=== PATIENT | female | born 1965 | race Caucasian/White ===

== ENCOUNTER 2021-05-11 13:01 | Emergency (ER) | payer MEDICAID, OTHER ==
[~2021-05-11] VITALS: Ht 170.2 cm; Wt 118.2 kg
[~2021-05-11 13:01] MED LIST: ATOR20TA86 PO; BACL10TA PO; DOCU-350 PO; FAMO20 PO; GABA-1181 PO; MORP15TA43 PO; NYST15PO3 TP; POLY17PO47 PO; RIVA10 PO; SENN8.6T90 PO; SERT-158 PO; SITA50 PO
[2021-05-11] MEDS ORDERED: PERMETHRIN 5% 60 GM CREAM TP ONE (14:30)
[2021-05-11] MEDS ORDERED: DiphenhydrAMINE HCL 25 MG CAPSULE PO ONE (14:30)
[2021-05-11 15:40] VITALS: BP 113/75
== END 2021-05-11 16:22 | disposition home or self-care (01) ==
LOC: EMS 13:01
DX: L30.9 Dermatitis, unspecified (principal); E11.9 Type 2 diabetes mellitus without complications; Z20.7 Contact with and (suspected) exposure to pediculosis, acariasis and other infestations; Z88.8 Allergy status to other drugs, medicaments and biological substances; Z88.6 Allergy status to analgesic agent; Z88.1 Allergy status to other antibiotic agents; Z91.041 Radiographic dye allergy status
CPT/HCPCS: 99283

== ENCOUNTER 2021-07-13 12:06 | Emergency (ER) | payer MEDICAID, OTHER ==
[~2021-07-13] VITALS: Ht 170.2 cm; Wt 119.1 kg
[~2021-07-13 12:06] MED LIST changes: -RIVA10 PO; +RIVA10TA PO
[2021-07-13 12:40] VITALS: BP 117/56
== END 2021-07-13 13:55 | disposition home or self-care (01) ==
LOC: EMS 12:06
DX: L08.9 Local infection of the skin and subcutaneous tissue, unspecified (principal); E11.9 Type 2 diabetes mellitus without complications; F20.9 Schizophrenia, unspecified; Z88.8 Allergy status to other drugs, medicaments and biological substances; Z88.6 Allergy status to analgesic agent; Z88.1 Allergy status to other antibiotic agents; Z91.041 Radiographic dye allergy status
CPT/HCPCS: 82962; 99283

== ENCOUNTER 2021-10-22 10:08 | Day surgery (SDC) | payer OTHER ==
[~2021-10-22 10:08] MED LIST changes: -DOCU-350 PO; +DOCU250C99 PO
[2021-10-22] MEDS ORDERED: PROPOFOL 1% 20 ML VIAL IVP ONE (10:09)
[2021-10-22] MEDS ORDERED: LIDOCAINE/PF 2% 5 ML VIAL IM ONE (10:09)
[2021-10-22] MEDS ORDERED: SODIUM CHLORIDE 0.9% 1,000 ML IV ONE (10:30)
[2021-10-22 10:37] LABS: COVID AG,FIA SOURCE NASAL SWAB
[2021-10-22] MEDS ORDERED: OXYGEN THERAPY IH SCH (20:00)
== END 2021-10-22 13:55 | disposition home or self-care (01) ==
LOC: SURGERY 10:08
PROVIDERS: ATTEND Specialist
DX: R19.5 Other fecal abnormalities (principal); D12.8 Benign neoplasm of rectum; E11.22 Type 2 diabetes mellitus with diabetic chronic kidney disease; N18.30 Chronic kidney disease, stage 3 unspecified; E66.01 Morbid (severe) obesity due to excess calories; Z20.822 Contact with and (suspected) exposure to COVID-19; Z79.899 Other long term (current) drug therapy; Z98.890 Other specified postprocedural states; Z82.49 Family history of ischemic heart disease and other diseases of the circulatory system; Z83.3 Family history of diabetes mellitus
CPT/HCPCS: 45385; 87426; 88305; C1769; C9803; J2704; J3490; J7030

== ENCOUNTER 2021-10-25 12:03 | Emergency (ER) | payer OTHER ==
[~2021-10-25] VITALS: Ht 170.2 cm; Wt 119.1 kg
[~2021-10-25 12:03] MED LIST changes: +DOCU-350 PO; -DOCU250C99 PO
[2021-10-25] MEDS ORDERED: HYDROCODONE/ACETAMINOPHEN 5-325 MG TABLET PO ONE (13:45)
[2021-10-25 15:28] VITALS: BP 134/70
== END 2021-10-25 15:30 | disposition home or self-care (01) ==
LOC: EMS 12:26
DX: G89.29 Other chronic pain (principal); M25.512 Pain in left shoulder; E11.9 Type 2 diabetes mellitus without complications; F20.9 Schizophrenia, unspecified; Z88.1 Allergy status to other antibiotic agents; Z88.6 Allergy status to analgesic agent; Z88.8 Allergy status to other drugs, medicaments and biological substances; Z91.041 Radiographic dye allergy status; Z79.899 Other long term (current) drug therapy
CPT/HCPCS: 99283

== ENCOUNTER 2022-01-04 10:48 | Emergency (ER) | payer OTHER ==
[~2022-01-04] VITALS: Ht 170.2 cm; Wt 122.7 kg
[~2022-01-04 10:48] MED LIST changes: -DOCU-350 PO; +DOCU250C99 PO
[2022-01-04] MEDS ORDERED: CHOL500013 PO (11:07)
[2022-01-04] MEDS ORDERED: DICL100G51 TP (11:07)
[2022-01-04] MEDS ORDERED: DULA0.75 SQ (11:07)
[2022-01-04] MEDS ORDERED: PANT-31 PO (11:07)
[2022-01-04] MEDS ORDERED: ACETAMINOPHEN 500 MG TABLET PO ONE (12:30)
[2022-01-04] MEDS ORDERED: SERT-162 PO (12:33)
[2022-01-04] MEDS ORDERED: SITA100 PO (12:35)
[2022-01-04] MEDS ORDERED: HYDR-4584 PO (12:35)
[2022-01-04] MEDS ORDERED: LURA40TA2 PO (12:35)
[2022-01-04] MEDS ORDERED: GABA800T9 PO (12:35)
[2022-01-04] MEDS ORDERED: LEVO50TA11 PO (12:35)
[2022-01-04 13:23] VITALS: BP 108/51
== END 2022-01-04 13:42 | disposition home or self-care (01) ==
LOC: EMS 10:48
DX: S83.92XA Sprain of unspecified site of left knee, initial encounter (principal); E11.9 Type 2 diabetes mellitus without complications; F20.9 Schizophrenia, unspecified; Z88.5 Allergy status to narcotic agent; Z88.6 Allergy status to analgesic agent; Z91.041 Radiographic dye allergy status; Z88.8 Allergy status to other drugs, medicaments and biological substances; W05.0XXA Fall from non-moving wheelchair, initial encounter; Y93.89 Activity, other specified; Y92.89 Other specified places as the place of occurrence of the external cause; Y99.8 Other external cause status
CPT/HCPCS: 82962; 99284

== ENCOUNTER 2022-02-16 06:44 | Emergency (ER) | payer OTHER ==
[~2022-02-16] VITALS: Ht 170.2 cm; Wt 136.0 kg
[~2022-02-16 06:44] MED LIST changes: +CHOL500013 PO; +DICL100G51 TP; +DOCU-350 PO; -DOCU250C99 PO; +DULA0.75 SQ; -FAMO20 PO; -GABA-1181 PO; +GABA800T9 PO; +HYDR-4584 PO; +LEVO50TA11 PO; +LURA40TA2 PO; -MORP15TA43 PO; -NYST15PO3 TP; +PANT-31 PO; -POLY17PO47 PO; -SERT-158 PO; +SERT-162 PO; +SITA100 PO; -SITA50 PO
[2022-02-16] MEDS ORDERED: 0.9% SODIUM CHLORIDE 10 ML SYRINGE IVP PRN (07:00)
[2022-02-16 08:06] LABS: BASOPHILS % (AUTO) 0.4 % (0.0-2.0); EOSINOPHILS % (AUTO) 1.1 % (1.0-6.0); HEMATOCRIT 32.2 % (36-46); HEMOGLOBIN 10.6 g/dL (12.0-16.0); LYMPHOCYTES # (AUTO) 1.2 K/uL (1.0-4.8); LYMPHOCYTES % (AUTO) 23.6 % (22.0-44.0); MEAN CORPUSCULAR HEMOGLOBIN 26.8 pg (26.0-34.0); MEAN CORPUSCULAR HGB CONC 32.9 G/dL (31.0-37.0); MEAN CORPUSCULAR VOLUME 82 fL (80-100); MONOCYTES # (AUTO) 0.3 K/uL (0.1-1.0); MONOCYTES % (AUTO) 6.1 % (2.0-9.0); NEUTROPHILS # (AUTO) 3.4 K/uL (1.8-7.7); NEUTROPHILS % (AUTO) 68.8 % (40.0-70.0); PLATELET COUNT (AUTO) 138 K/uL (150-450); RED BLOOD CELL COUNT(AUTO) 3.95 MIL/uL (4.00-5.20); RED CELL DISTRIBUTION WIDTH 15.8 % (11.5-14.5)
[2022-02-16 08:16] LABS: CALCIUM, TOTAL 8.8 mg/dL (8.8-10.5); CREATININE 1.82 mg/dL (0.60-1.30); POTASSIUM 4.2 mmol/L (3.5-5.1)
[2022-02-16 08:19] LABS: INR 1.1 (0.9-1.1); PROTHROMBIN TIME 11.7 SEC (9.4-11.6)
[2022-02-16 08:21] LABS: ALBUMIN 3.1 g/dL (3.4-5.0); BILIRUBIN,TOTAL 0.6 mg/dL (0.1-1.0); TOTAL PROTEIN, SERUM 7.1 g/dL (6.4-8.2)
[2022-02-16 08:24] LABS: LACTIC ACID 0.8 mmol/L (0.4-2.0)
[2022-02-16 08:45] LABS: APPEARANCE,URINE CLEAR (CLEAR); BILIRUBIN,URINE NEGATIVE (NEGATIVE); GLUCOSE, URINE (UA) NEGATIVE (NEGATIVE); KETONES,URINE NEGATIVE (NEGATIVE); LEUKOCYTE ESTERASE ,URINE NEGATIVE (NEGATIVE); NITRATE,URINE NEGATIVE (NEGATIVE); OCCULT BLOOD,URINE NEGATIVE (NEGATIVE); PROTEIN,URINE NEGATIVE (NEGATIVE); SPECIFIC GRAVITIY, URINE 1.015 (1.003-1.030); UROBILINOGEN,URINE <=1.0 mg/dL (<=1.0)
[2022-02-16] MEDS ORDERED: SULFAMETHOX/TRIMETH DS 800-160 MG/TABLET PO ONE (09:00)
[2022-02-16] MEDS ORDERED: CeFAZolin 1 GM/DEXTROSE 50 ML IV ONE (09:00)
[2022-02-16] MEDS ORDERED: SULF-261 PO (09:09)
[2022-02-16] MEDS ORDERED: ACETAMINOPHEN/CODEINE 300-30 MG TABLET PO ONE (10:15)
[2022-02-16 10:42] VITALS: BP 126/67
== END 2022-02-16 10:59 | disposition home or self-care (01) ==
LOC: EMS 06:44
DX: L03.116 Cellulitis of left lower limb (principal); E11.9 Type 2 diabetes mellitus without complications; E78.00 Pure hypercholesterolemia, unspecified; Z88.1 Allergy status to other antibiotic agents; Z88.6 Allergy status to analgesic agent; Z91.041 Radiographic dye allergy status; Z79.899 Other long term (current) drug therapy
CPT/HCPCS: 36415; 71045; 80053; 81003; 83605; 85025; 85610; 87040; 93005; 96365; 99285; J0690

== ENCOUNTER 2022-03-16 01:44 | Emergency (ER) | payer OTHER ==
[~2022-03-16] VITALS: Ht 170.2 cm; Wt 280.0 kg
[~2022-03-16 01:44] MED LIST changes: +SULF-261 PO
[2022-03-16] MEDS ORDERED: SULF-261 PO (02:00)
[2022-03-16] MEDS: SULFAMETHOX/TRIMETH DS 800-160 MG/TABLET PO ONE (02:03)
[2022-03-16] MEDS: BACITRACIN 0.9 GM PACKET OINTMENT TP ONE ×2 (02:03→02:26)
[2022-03-16] MEDS: HYDROCODONE/ACETAMINOPHEN 5-325 MG TABLET PO ONE (02:03)
[2022-03-16 02:37] VITALS: BP 122/69
[2022-03-16 02:46] LABS: GLUCOMETER DEV NAME(LOC) ERT.5; GLUCOSE,POINT OF CARE 112 MG/DL (70-110)
== END 2022-03-16 05:36 | disposition home or self-care (01) ==
LOC: EMS 01:45
DX: L03.116 Cellulitis of left lower limb (principal); E11.9 Type 2 diabetes mellitus without complications; E78.00 Pure hypercholesterolemia, unspecified; F25.9 Schizoaffective disorder, unspecified; F11.20 Opioid dependence, uncomplicated; M48.00 Spinal stenosis, site unspecified; G31.9 Degenerative disease of nervous system, unspecified; Z86.718 Personal history of other venous thrombosis and embolism; Z98.890 Other specified postprocedural states; Z89.511 Acquired absence of right leg below knee; Z91.041 Radiographic dye allergy status; Z88.1 Allergy status to other antibiotic agents; Z88.8 Allergy status to other drugs, medicaments and biological substances; Z91.09 Other allergy status, other than to drugs and biological substances
CPT/HCPCS: 82962; 99284